=== PATIENT | female | born 2000 | race Caucasian/White ===

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

== ENCOUNTER 2021-12-29 15:05 | Emergency (ER) | payer OTHER ==
[~2021-12-29] VITALS: Ht 160 cm; Wt 86.4 kg
[2021-12-29] MEDS ORDERED: BOOSTRIX/ADACEL VACCINE (DIPHTH/PERTUSS/ACELL/TETANUS) 0.5ML SYR IM ONE (16:20)
[2021-12-29 16:43] LABS: BASO # 0.1 10^3/uL (0.0-0.2); BASO % 0.7 % (0.0-1.0); EOS # 0.4 10^3/uL (0.0-0.5); EOS % 4.5 % (0.0-3.0); HEMATOCRIT 38.2 % (36.0-47.0); HEMOGLOBIN 12.5 g/dl (12.0-15.5); LYMPH # 2.2 10^3/uL (1.5-5.0); LYMPH % 24.8 % (24.0-44.0); MEAN CORPUSCULAR HEMOGLOBIN 29.6 pg (27.0-33.0); MEAN CORPUSCULAR HGB CONC 32.7 g/dl (32.0-36.5); MEAN CORPUSCULAR VOLUME 90.3 fl (80.0-96.0); MONO # 0.7 10^3/uL (0.0-0.8); MONO % 7.9 % (2.0-8.0); NEUTROPHILS # 5.4 10^3/uL (1.5-8.5); NEUTROPHILS % 61.9 % (36.0-66.0); PLATELET COUNT, AUTOMATED 424 10^3/uL (150-450); RED BLOOD COUNT 4.23 10^6/uL (4.00-5.40); WHITE BLOOD COUNT 8.7 10^3/uL (4.0-10.0)
[2021-12-29 17:13] LABS: HCG, SERUM QUALITATIVE NEGATIVE (NEGATIVE)
[2021-12-29] MEDS ORDERED: EXPOSURE KIT-ADULT 7 DAY SUPPLY PO ONE (17:40)
[2021-12-29] MEDS ORDERED: RALT40TA PO (18:01)
[2021-12-29] MEDS ORDERED: ONDA4TAB6 PO (18:01)
[2021-12-29] MEDS ORDERED: EMTR1TAB16 PO (18:01)
[2021-12-29 18:03] LABS: ALBUMIN 3.6 GM/DL (3.2-5.2); ALT/SGPT 38 U/L (12-78); BILIRUBIN,TOTAL 0.4 MG/DL (0.2-1.0); BLOOD UREA NITROGEN 12 MG/DL (7-18); CALCIUM LEVEL 8.9 MG/DL (8.5-10.1); CARBON DIOXIDE LEVEL 25 MEQ/L (21-32); CHLORIDE LEVEL 110 MEQ/L (98-107); CREATININE FOR GFR 0.72 MG/DL (0.55-1.30); GLUCOSE, FASTING 89 MG/DL (70-100); HEPATITIS B SURFACE ANTIBODY POSITIVE (POSITIVE); HEPATITIS B SURFACE ANTIGEN NEGATIVE (NEGATIVE); HEPATITIS C VIRUS ABY INDEX 0.1 INDEX (<0.8); HIV 1&2 SCREEN CENTAUR NEGATIVE (NEGATIVE); POTASSIUM SERUM 4.6 MEQ/L (3.5-5.1); SODIUM LEVEL 139 MEQ/L (136-145)
[2021-12-29] MEDS ORDERED: RALTEGRAVIR 400 MG TAB (ISENTRESS) PO ONE (18:20)
[2021-12-29] MEDS ORDERED: TRUVADA 200MG/300MG TABLET PO ONE (18:20)
[2021-12-29 18:44] VITALS: BP 140/70
[2021-12-30] MEDS ORDERED: RALTEGRAVIR 400 MG TAB (ISENTRESS) PO SCH
[2021-12-30] MEDS ORDERED: TRUVADA 200MG/300MG TABLET PO SCH
== END 2021-12-29 18:46 | disposition home or self-care (01) ==
LOC: M ED 15:05
DX: S61.234A Puncture wound without foreign body of right ring finger without damage to nail, initial encounter (principal); W46.1XXA Contact with contaminated hypodermic needle, initial encounter; Y92.410 Unspecified street and highway as the place of occurrence of the external cause; Y93.9 Activity, unspecified; Y99.9 Unspecified external cause status; Z23 Encounter for immunization

== ENCOUNTER 2022-04-23 14:01 | Emergency (ER) | payer OTHER ==
[~2022-04-23] VITALS: Ht 160 cm; Wt 103.2 kg
[~2022-04-23 14:01] MED LIST: EMTR1TAB16 PO; ONDA4TAB6 PO; RALT40TA PO
[2022-04-23] MEDS ORDERED: BUPR75TA5 PO (14:22)
[2022-04-23] MEDS ORDERED: NEOSPORIN OINT 0.9 GM PKT TOP ONE (17:05)
[2022-04-23] MEDS ORDERED: LIDOCAINE 1% MDV 20ML VIAL SC ONE (17:05)
[2022-04-23 17:59] VITALS: BP 122/79
== END 2022-04-23 18:07 | disposition home or self-care (01) ==
LOC: M ED 14:01
DX: S91.312A Laceration without foreign body, left foot, initial encounter (principal); W25.XXXA Contact with sharp glass, initial encounter; Y92.009 Unspecified place in unspecified non-institutional (private) residence as the place of occurrence of the external cause

== ENCOUNTER 2022-05-01 11:18 | Emergency (ER) | payer OTHER ==
[~2022-05-01] VITALS: Ht 160 cm; Wt 104.2 kg
[~2022-05-01 11:18] MED LIST changes: +BUPR75TA5 PO
[2022-05-01 11:19] VITALS: BP 124/74
== END 2022-05-01 13:32 | disposition home or self-care (01) ==
LOC: M ED 11:18
DX: Z48.02 Encounter for removal of sutures (principal); Z91.018 Allergy to other foods

== ENCOUNTER → 2024-05-24 | Outpatient (REF) | payer OTHER ==
[~2024-05-24] MED LIST changes: +ONDA-282 PO; -ONDA4TAB6 PO
== END ==
LOC: M LAB REF 12:07
PROVIDERS: ATTEND Physician Assistant
DX: B34.9 Viral infection, unspecified (principal)

== ENCOUNTER → 2024-05-26 | Outpatient (REF) | payer OTHER | LOC: M LAB REF 20:03 | PROVIDERS: ATTEND Physician Assistant Medical | DX: B34.9 Viral infection, unspecified (principal) ==

== ENCOUNTER → 2024-07-03 | Outpatient (CLI) | payer OTHER | LOC: M RAD 12:42 | PROVIDERS: ATTEND Nurse Practitioner Family | DX: Z34.02 Encounter for supervision of normal first pregnancy, second trimester (principal) ==

== ENCOUNTER → 2024-08-07 | Outpatient (CLI) | payer OTHER ==
[2024-08-07 15:26] LABS: HEMATOCRIT 33.9 % (36.0-47.0); MEAN CORPUSCULAR HEMOGLOBIN 30.1 pg (27.0-33.0); MEAN CORPUSCULAR HGB CONC 32.4 g/dl (32.0-36.5); MEAN CORPUSCULAR VOLUME 92.9 fl (80.0-96.0); PLATELET COUNT, AUTOMATED 358 10^3/uL (150-450); RED BLOOD COUNT 3.65 10^6/uL (4.00-5.40); WHITE BLOOD COUNT 14.2 10^3/uL (4.0-10.0)
[2024-08-07 15:27] LABS: GLUCOSE CHALLENGE TEST 1 HOUR 96 MG/DL (LESS THAN 140)
[2024-08-07 16:02] LABS: HIV 1&2 SCREEN NEGATIVE (NEGATIVE)
[2024-08-07 16:10] LABS: HEPATITIS C VIRUS ABY INDEX < 0.02 INDEX (<0.8)
[2024-08-07 16:56] LABS: GC DNA AMPLIFICATION NEGATIVE (NEGATIVE)
== END ==
LOC: M PLALAB 11:03
PROVIDERS: ATTEND Nurse Practitioner Family
DX: Z34.02 Encounter for supervision of normal first pregnancy, second trimester (principal)

== ENCOUNTER → 2024-08-07 | Outpatient (CLI) | payer OTHER | LOC: M WHC 10:15 | PROVIDERS: ATTEND Nurse Practitioner Family | DX: Z34.02 Encounter for supervision of normal first pregnancy, second trimester (principal) ==

== ENCOUNTER → 2024-10-19 | Outpatient (REF) | payer SELFPAY, MEDICARE | LOC: M SFHCWAGY 16:59 | PROVIDERS: ATTEND Nurse Practitioner Family | DX: Z36.85 Encounter for antenatal screening for Streptococcus B (principal); Z3A.36 36 weeks gestation of pregnancy ==

== ENCOUNTER → 2024-10-19 | Outpatient (CLI) | payer MEDICAID, OTHER, SELFPAY | LOC: M WHC 11:28 | PROVIDERS: ATTEND Nurse Practitioner Family | DX: O36.63X1 Maternal care for excessive fetal growth, third trimester, fetus 1 (principal); Z3A.36 36 weeks gestation of pregnancy ==

== ENCOUNTER → 2024-10-22 | Outpatient (CLI) | payer OTHER, SELFPAY ==
[2024-10-22 18:12] LABS: HEMATOCRIT 34.9 % (36.0-47.0); HEMOGLOBIN 10.7 g/dl (12.0-15.5); MEAN CORPUSCULAR HEMOGLOBIN 27.1 pg (27.0-33.0); MEAN CORPUSCULAR HGB CONC 30.7 g/dl (32.0-36.5); MEAN CORPUSCULAR VOLUME 88.4 fl (80.0-96.0); PLATELET COUNT, AUTOMATED 347 10^3/uL (150-450); RED BLOOD COUNT 3.95 10^6/uL (4.00-5.40)
[2024-10-22 18:39] LABS: TOTAL PROTEIN,RANDOM URINE 110.1 MG/DL (0.0-14.0)
[2024-10-22 18:41] LABS: LDH LACTATE DEHYDROGENASE 212 U/L (120-246)
[2024-10-22 18:42] LABS: ALT/SGPT < 9 U/L (7.0-40); AST/SGOT 12 U/L (<34); BILIRUBIN,TOTAL 0.4 MG/DL (0.3-1.2); CREATININE FOR GFR 0.73 MG/DL (0.55-1.30); GLOMERULAR FILTRATION RATE > 60.0 (>60)
[2024-10-22 18:43] LABS: CREATININE,RANDOM URINE 67.6 MG/DL
== END ==
LOC: M PLALAB 16:02
PROVIDERS: ATTEND Nurse Practitioner Family
DX: R03.0 Elevated blood-pressure reading, without diagnosis of hypertension (principal)

== ENCOUNTER 2024-10-23 09:13 | Inpatient (IN) | payer SELFPAY ==
[~2024-10-23] VITALS: Ht 160 cm; Wt 118.4 kg
[2024-10-23] VITALS (9 sets, daily range): BP systolic 135–165; BP diastolic 72–96
[2024-10-23] MEDS ORDERED: HOME MED LIST COMPLETE! XX SCH (09:45)
[2024-10-23] MEDS ORDERED: OXYTOCIN DRIP 30 UNITS in IV 1 EA IV PRN (09:55)
[2024-10-23] MEDS ORDERED: LIDOCAINE 1% MDV 20ML VIAL INFIL PRN (09:55)
[2024-10-23 10:26] LABS: HEMATOCRIT 31.6 % (36.0-47.0); MEAN CORPUSCULAR HEMOGLOBIN 27.2 pg (27.0-33.0); MEAN CORPUSCULAR HGB CONC 31.6 g/dl (32.0-36.5); MEAN CORPUSCULAR VOLUME 86.1 fl (80.0-96.0); PLATELET COUNT, AUTOMATED 297 10^3/uL (150-450); RED BLOOD COUNT 3.67 10^6/uL (4.00-5.40); WHITE BLOOD COUNT 9.9 10^3/uL (4.0-10.0)
[2024-10-23] MEDS: miSOPROStol 50MCG 1/2 TABLET SL SCH (10:30)
[2024-10-23 11:24] LABS: HIV 1&2 SCREEN NEGATIVE (NEGATIVE)
[2024-10-23] MEDS: PROMETHAZINE 25MG/ML 1ML VIAL IV ONE (22:21)
[2024-10-23] MEDS: BUTORPHANOL 2 MG/ML 1ML VIAL IV ONE (22:21)
[2024-10-24] VITALS (38 sets, daily range): BP systolic 119–192; BP diastolic 65–109; O2SAT 96–98
[2024-10-24] MEDS ORDERED: METHYLERGONOVINE MALEATE 0.2 MG TAB PO PRN (02:50)
[2024-10-24] MEDS ORDERED: IBUPROFEN 600MG TAB PO PRN (02:50)
[2024-10-24] MEDS ORDERED: RHOGAM 300MCG (1500IU) INJ IM SCH (02:50)
[2024-10-24] MEDS: DIBUCAINE 1% OINTMENT 30GM TOP PRN (08:14)
[2024-10-24] MEDS: DOCUSATE SODIUM 100MG CAPSULE PO PRN (08:14)
[2024-10-24] MEDS: ACETAMINOPHEN 500 MG TAB PO PRN (08:14)
[2024-10-24] MEDS: PRENATAL VITAMINS CHEWABLE TABLET PO SCH (08:14)
[2024-10-24] MEDS: LABETALOL 100MG/20ML VIAL IV STA ×2 (10:35→17:31)
[2024-10-24] MEDS: LABETALOL 200 MG TAB PO SCH ×2 (10:54→17:32)
[2024-10-24] MEDS: IBUPROFEN 800 MG TAB PO PRN (17:05)
[2024-10-25] VITALS (9 sets, daily range): BP systolic 112–138; BP diastolic 60–91; TEMP 97.9; O2SAT 87–98
[2024-10-25] MEDS: ACETAMINOPHEN 325 MG TAB PO PRN (00:52)
[2024-10-26 01:00] VITALS: BP 125/83; O2SAT 97
[2024-10-26 05:00] VITALS: BP 134/79; O2SAT 97
[2024-10-26 08:14] VITALS: BP 122/70
[2024-10-26] MEDS ORDERED: MEASLES,MUMPS,RUBELLA VACCINE INJ (MMR-II) SC.IMMUN ONE (09:00)
[2024-10-26 10:00] VITALS: BP 145/76; O2SAT 96
[2024-10-26] MEDS ORDERED: LABE20TAB PO (10:19)
[2024-10-26] MEDS ORDERED: IBUP80TA PO (10:19)
[2024-10-26] MEDS ORDERED: ACET-683 PO (10:19)
== END 2024-10-26 13:40 | disposition home or self-care (01) | DRG 560 ==
LOC: M LDI 09:13 → M OBS 10-24 04:04
PROVIDERS: ADMIT Specialist; ATTEND Specialist
PROC: 3E0P7GC Introduction of Other Therapeutic Substance into Female Reproductive, Via Natural or Artificial Opening (ICD-10-PCS; 2024-10-23)
PROC: 10E0XZZ Delivery of Products of Conception, External Approach (ICD-10-PCS; principal; 2024-10-24)
PROC: 0KQM0ZZ Repair Perineum Muscle, Open Approach (ICD-10-PCS; 2024-10-24)
DX: O14.94 Unspecified pre-eclampsia, complicating childbirth (principal); O70.1 Second degree perineal laceration during delivery; Z3A.37 37 weeks gestation of pregnancy; Z91.018 Allergy to other foods; Z87.891 Personal history of nicotine dependence; Z37.0 Single live birth